=== PATIENT | male | born 1995 | race Caucasian/White ===

== ENCOUNTER 2021-05-03 10:51 | Day surgery (SDC) | payer BC ==
[2021-05-03] MEDS ORDERED: Lidocaine 1% MPF 2 ML VIAL ONE (12:19)
[2021-05-03] MEDS ORDERED: PROPOFOL 40 ML ONE (13:10)
[2021-05-03] MEDS ORDERED: Lidocaine 1% PF 5 ML VIAL ONE (13:11)
== END 2021-05-03 14:20 | disposition home or self-care (01) ==
LOC: CSHSDC 10:51
PROVIDERS: ATTEND Internal Medicine Gastroenterology
PROC: 0DBL8ZZ Excision of Transverse Colon, Via Natural or Artificial Opening Endoscopic (ICD-10-PCS; principal; 2021-05-03)
DX: K62.5 Hemorrhage of anus and rectum (principal); K63.5 Polyp of colon
CPT/HCPCS: 88305; J2704